=== PATIENT | male | born 1950 | race Caucasian/White ===

== ENCOUNTER 2023-06-30 08:30 | Inpatient (IN) ==
[2023-06-30] MEDS ORDERED: LORazepam 2 mg VIAL 1 ml IV PUSH PRN ×2 (12:19)
[2023-07-01] MEDS ORDERED: Influenza vaccine *QUAD* *2023-24* 0.5 ML SYRINGE IM ONE (09:00)
[2023-07-01] MEDS: Cholecalciferol (VIT D3) 1,000 unit TAB PO SCH (09:01)
[2023-07-01 18:46] LABS: Calcium 8.9 mg/dL (8.6-10.3); Potassium 4.5 mmol/L (3.5-5.0)
[2023-07-01 18:51] LABS: Creatinine, Serum 0.94 mg/dL (0.67-1.17); eGFR CKD-EPI 87.2 (>60)
[2023-07-02] MEDS: Cholecalciferol (VIT D3) 1,000 unit TAB PO SCH (08:45)
[2023-07-02 11:02] VITALS: BP 124/72
== END 2023-07-02 10:35 | disposition home or self-care (01) | DRG 101 ==
LOC: MEDTELE 09:02
PROVIDERS: ADMIT Psychiatry & Neurology Neurology; ATTEND Psychiatry & Neurology Neurology